=== PATIENT | female | born 1945 | race African-American/Black ===

== ENCOUNTER 2017-02-10 19:46 | Observation (INO) | payer OTHER ==
[~2017-02-10] VITALS: Ht 162.6 cm; Wt 60.0 kg
[~2017-02-10 19:46] MED LIST: APIX5TAB PO; FERR324T4 PO; FLON0.053; LISI10TA PO; LOVA40TA PO; OMEP20TA39 PO; ZOFR4TAB3 SL
[2017-02-10 19:49] VITALS: BP 197/91; PULSE 69; RESP 15; TEMP 98.6; O2SAT 99
[2017-02-10] MEDS ORDERED: SODIUM CHLORIDE 0.9% FLUSH 10 ML FLUSH IVF PRN (20:15)
[2017-02-10] MEDS ORDERED: OMEP40CA2 PO (20:18)
[2017-02-10] MEDS ORDERED: LOVA40TA PO (20:18)
[2017-02-10] MEDS ORDERED: FURO20TA PO (20:18)
[2017-02-10] MEDS ORDERED: HYDR-3580 PO (20:18)
[2017-02-10] MEDS ORDERED: LISI-519 PO (20:18)
[2017-02-10] MEDS ORDERED: APIX5TAB PO (20:18)
--- NOTE | 2017-02-10 20:23 | PD ---
HPI Chief Complaint: Chest Pain Time Seen by Provider: 20:18 Travel History International Travel<30 days: No Contact w/Intl Traveler<30days: No Traveled to known affect area: No History of Present Illness HPI 71-year-old female presents to the emergency department for evaluation of midsternal chest pain that radiates down to the abdomen for approximately 2 days. She reports nausea. No vomiting. 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 She states she was diagnosed with this 3 years ago and states it is not followed. She states she is not sure where this tumor is. Patient states she had a stress test approximately a year ago at [place] and states it was normal. 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 She has not followed with pageant director. Patient reports history of CVA and is on Eliquis. She states that she woke up this morning with some left arm numbness and left leg numbness. Patient states she did not have that yesterday. She states she had chills last night. She denies headache or fevers. She states she is mildly short of breath. Patient reports history of appendectomy, but denies any chronic abdominal problems. PFSH Past Medical History Hx Anticoagulant Therapy: Yes (ELIQUIS) Arthritis: No Asthma: No Autoimmune Disease: No Blood Disorders: No Anxiety: Yes Depression: Yes Heart Rhythm Problems: No Cancer: No Cardiovascular Problems: No High Cholesterol: Yes Chemotherapy: No Chest Pain: No Congestive Heart Failure: No COPD: No Cerebrovascular Accident: Yes (AFTER REHAB STILL TROUBLE WITH L EYE APPROX. 2011) Diabetes: No Diminished Hearing: No Endocrine: No Gastrointestinal Disorders: Yes GERD: Yes Glaucoma: No Genitourinary: No Headaches: Yes Hepatitis: No Hiatal Hernia: No Hypertension: No Immune Disorder: No Kidney Stones: No Musculoskeletal: Yes Neurologic: No Psychiatric: Yes Reproductive: No Respiratory: Yes Immunizations Current: Yes Migraines: No Myocardial Infarction: No Radiation Therapy: No Renal Failure: No Seizures: No Sickle Cell Disease: No Sleep Apnea: No Thyroid Disease: No Ulcer: No Menopausal: Yes Past Surgical History Abdominal Surgery: Yes (HYSTERECTOMY, ?APPENDECTOMY) AICD: No Appendectomy: Yes Arteriovenous Shunt: No Cardiac Surgery: No Cholecystectomy: No Ear Surgery: No Endocrine Surgery: No Eye Surgery: No Genitourinary Surgery: No Gynecologic Surgery: No Hysterectomy: Yes Insulin Pump: No Joint Replacement: No Oral Surgery: No Pacemaker: No Thoracic Surgery: No Other Surgery: Yes Social History Alcohol Use: Yes (RARELY) Tobacco Use: No (QUIT OVER 30 YEARS AGO) Substance Use: No Allergies-Medications (Allergen,Severity, Reaction): Coded Allergies: Codeine (Verified Allergy, Severe, 10/31/14) Sulfa (Verified Allergy, Severe, 10/31/14) STATES NOT ALLERGIC Reported Meds & Prescriptions Reported Meds & Active Scripts Active Reported Eliquis (Apixaban) 5 Mg Tab 5 Mg PO BID Lovastatin 40 Mg Tab 80 Mg PO HS Lisinopril 5 Mg Tab 5 Mg PO DAILY Furosemide 20 Mg Tab 20 Mg PO DAILY Hydrocodone-Acetaminophen 7.5-325 mg Tab 1 Tab PO Q8HR PRN Omeprazole 40 Mg Cap 40 Mg PO DAILY Review of Systems Except as stated in HPI: all other systems reviewed are Neg Physical Exam Narrative GENERAL: Well-nourished, well-developed elderly female patient, afebrile. SKIN: Focused skin assessment warm/dry. HEAD: Normocephalic. Atraumatic. EYES: No scleral icterus. No injection or drainage. NECK: Supple, trachea midline. No JVD or lymphadenopathy. CARDIOVASCULAR: Regular rate and rhythm without murmurs, gallops, or rubs. Bilateral radial and pedal pulses 2+ RESPIRATORY: Breath sounds equal bilaterally. No accessory muscle use. Lungs sounds are clear to auscultation GASTROINTESTINAL: Abdomen soft and nondistended. Patient's epigastric and left lower quadrant tenderness to palpation. MUSCULOSKELETAL: No cyanosis, or edema. BACK: Nontender without obvious deformity. No CVA tenderness. Bilateral upper and lower extremity strength 5/5. All extremities are neurovascularly intact. NEUROLOGICAL: Awake and alert. Cranial nerves II through XII intact. Motor and sensory grossly within normal limits. Five out of 5 muscle strength in all muscle groups. Normal speech. Data Data Last Documented VS Vital Signs Date Time Temp Pulse Resp B/P Pulse Ox O2 Delivery O2 Flow Rate FiO2 02/10/17 20:37 69 18 100 02/10/17 19:49 98.6 197/91 Room Air Orders Electrocardiogram (02/10/17 20:15) Ckmb (Isoenzyme) Profile (02/10/17 20:15) Complete Blood Count With Diff (02/10/17 20:15) Magnesium (Mg) (02/10/17 20:15) Prothrombin Time / Inr (Pt) (02/10/17 20:15) Act Partial Throm Time (Ptt) (02/10/17 20:15) Troponin I (02/10/17 20:15) Chest, Single Ap (02/10/17 20:15) Ecg Monitoring (02/10/17 20:15) Bilateral Bp Monitoring (02/10/17 20:15) Iv Access Insert/Monitor (02/10/17 20:15) Oximetry (02/10/17 20:15) Oxygen Administration (02/10/17 20:15) Sodium Chloride 0.9% Flush (Ns Flush) (02/10/17 20:15) Comprehensive Metabolic Panel (02/10/17 20:15) Lipase (02/10/17 20:15) Urinalysis - C+S If Indicated (02/10/17 20:15) Ct Abd/Pel W Iv Contrast(Rout) (02/10/17 ) Ct Brain W/O Iv Contrast(Rout) (02/10/17 ) CKMB (02/10/17 20:23) CKMB% (02/10/17 20:23) Ondansetron Inj (Zofran Inj) (02/10/17 21:45) Morphine Inj (Morphine Inj) (02/10/17 21:45) Morphine Inj (Morphine Inj) (02/10/17 22:00) Labs Laboratory Tests Test 02/10/17 20:23 White Blood Count 4.7 TH/MM3 Red Blood Count 3.81 MIL/MM3 Hemoglobin 11.8 GM/DL Hematocrit 35.2 % Mean Corpuscular Volume 92.3 FL Mean Corpuscular Hemoglobin 31.0 PG Mean Corpuscular Hemoglobin 33.6 % Concent Red Cell Distribution Width 14.4 % Platelet Count 394 TH/MM3 Mean Platelet Volume 6.8 FL Neutrophils (%) (Auto) 27.8 % Lymphocytes (%) (Auto) 56.8 % Monocytes (%) (Auto) 11.7 % Eosinophils (%) (Auto) 2.5 % Basophils (%) (Auto) 1.2 % Neutrophils # (Auto) 1.3 TH/MM3 Lymphocytes # (Auto) 2.7 TH/MM3 Monocytes # (Auto) 0.6 TH/MM3 Eosinophils # (Auto) 0.1 TH/MM3 Basophils # (Auto) 0.1 TH/MM3 CBC Comment DIFF FINAL Differential Comment Prothrombin Time 10.5 SEC Prothromb Time International 1.0 RATIO Ratio Activated Partial 25.9 SEC Thromboplast Time Urine Color YELLOW Urine Turbidity CLEAR Urine pH 5.5 Urine Specific [place] 1.012 Urine Protein NEG mg/dL Urine Glucose (UA) NEG mg/dL Urine Ketones NEG mg/dL Urine Occult Blood TRACE Urine Nitrite NEG Urine Bilirubin NEG Urine Urobilinogen LESS THAN 2.0 MG/DL Urine Leukocyte Esterase NEG Microscopic Urinalysis Comment CULT NOT INDICATED Sodium Level 138 MEQ/L Potassium Level 3.9 MEQ/L Chloride Level 103 MEQ/L Carbon Dioxide Level 29.1 MEQ/L Anion Gap 6 MEQ/L Blood Urea Nitrogen 16 MG/DL Creatinine 0.71 MG/DL Estimat Glomerular Filtration 98 ML/MIN Rate Random Glucose 80 MG/DL Calcium Level 9.5 MG/DL Magnesium Level 2.1 MG/DL Total Bilirubin 0.3 MG/DL Aspartate Amino Transf 32 U/L (AST/SGOT) Alanine Aminotransferase 35 U/L (ALT/SGPT) Alkaline Phosphatase 78 U/L Total Creatine Kinase 119 U/L Creatine Kinase MB 0.7 NG/ML Troponin I LESS THAN 0.02 NG/ML Total Protein 8.0 GM/DL Albumin 3.9 GM/DL Lipase 116 U/L [facility] Medical Decision Making Medical Screen Exam Complete: Yes Emergency Medical Condition: Yes Medical Record Reviewed: Yes Interpretation(s) chest x-ray -CONCLUSION: No evidence of acute cardiopulmonary disease. CT brain - CONCLUSION: No acute intracranial abnormality. Old right occipital lobe infarct. Differential Diagnosis ACS versus chest wall pain versus pancreatitis versus diverticulitis versus TIA versus CVA versus intracranial abnormality versus electrolyte abnormality Narrative Course 77-year-old female presents to the emergency department for evaluation and midsternal chest pain and rates the abdomen for 2 days as well as left arm and leg numbness that started this morning. EKG shows sinus rhythm, heart rate 83 patient's nonspecific T-wave changes in V2 and V3. These appear more pronounced than previous EKG on file. CBC, CMP, magnesium, CK, troponin, lipase , PTT, PTT/INR are ordered and pending. UA is ordered and pending. CT abdomen/ pelvis and CT of the brain are ordered and pending. CBC shows no acute abnormality. CMP shows no acute abnormality. Magnesium is 2.1. CK is 119. Troponin is less than 0.02. Lipase is 116. Coags are unremarkable. UA is negative for acute infection. CT of the brain shows no acute intracranial abnormality. CT of the abdomen/pelvis is pending. Chest x- ray shows no evidence of acute cardiopulmonary disease. My attending physician, Dr. Cassidy, will resume care and disposition of patient. Armida Ibrahim Feb 10, 2017 20:23
[2017-02-10 20:37] VITALS: PULSE 69; RESP 18; O2SAT 100
--- NOTE | 2017-02-10 20:49 | RADRPT ---
EXAM DATE/TIME: 02/10/2017 20:30 [facility] COMPARISON: No previous studies available for comparison. INDICATIONS : Chest pain starting today` MEDICAL HISTORY : None. SURGICAL HISTORY : None. ENCOUNTER: Initial ACUITY: 1 day PAIN SCORE: 8/10 LOCATION: Left chest FINDINGS: A single view of the chest demonstrates the lungs to be symmetrically aerated without evidence of mas s, infiltrate or effusion. The cardiomediastinal contours are unremarkable. Osseous structures are intact. CONCLUSION: No evidence of acute cardiopulmonary disease. Carlton Melendrez MD on February 10, 2017 at 20:47 Board Certified Radiologist. This report was verified electronically.
[2017-02-10 21:08] LABS: AUTOMATED NEUTROPHIL # 1.3 TH/MM3 (1.8-7.7); BASOPHIL # 0.1 TH/MM3 (0-0.2); BASOPHIL % 1.2 % (0.0-2.0); EOSINOPHIL # 0.1 TH/MM3 (0-0.4); EOSINOPHIL % 2.5 % (0.0-4.0); HEMATOCRIT 35.2 % (35.0-46.0); HEMO FLAGS DIFF FINAL; LYMPH % 56.8 % (9.0-44.0); LYMPHOCYTE # 2.7 TH/MM3 (1.0-4.8); MEAN CELL VOLUME 92.3 FL (80.0-100.0); MEAN CORPUSCULAR HGB CONC 33.6 % (32.0-36.0); MONO % 11.7 % (0.0-8.0); NEUT % 27.8 % (16.0-70.0); PLATELET COUNT 394 TH/MM3 (150-450); RED BLOOD COUNT 3.81 MIL/MM3 (4.00-5.30); RED CELL DISTRIBUTION WIDTH 14.4 % (11.6-17.2); WHITE BLOOD COUNT 4.7 TH/MM3 (4.0-11.0)
[2017-02-10 21:19] LABS: APTT (PATIENT) 25.9 SEC (24.3-30.1); PROTHROMBIN TIME - PATIENT 10.5 SEC (9.8-11.6)
[2017-02-10 21:24] LABS: ANION GAP 6 MEQ/L (5-15); AST (GOT) 32 U/L (15-37); BICARBONATE 29.1 MEQ/L (21.0-32.0); BLOOD UREA NITROGEN 16 MG/DL (7-18); CHLORIDE 103 MEQ/L (98-107); GLOMERULAR FILTRATION RATE 98 ML/MIN (>89); MAGNESIUM 2.1 MG/DL (1.5-2.5); POTASSIUM 3.9 MEQ/L (3.5-5.1); SODIUM (NA) 138 MEQ/L (136-145)
[2017-02-10 21:30] LABS: ALKALINE PHOSPHATASE 78 U/L (45-117); ALT (GPT) 35 U/L (10-53); CREATINE KINASE 119 U/L (26-192); TOTAL BILIRUBIN ADULT 0.3 MG/DL (0.2-1.0)
[2017-02-10 21:42] LABS: CKMB 0.7 NG/ML (0.5-3.6)
[2017-02-10] MEDS ORDERED: MORPHINE SULFATE 4 MG/ML INJ IV PUSH ONE (21:45)
[2017-02-10] MEDS ORDERED: ONDANSETRON HCL 4 MG/2 ML VIAL IV PUSH ONE (21:45)
[2017-02-10 21:54] LABS: BLOOD, URINE TRACE (NEG); COMMENT (UR) CULT NOT INDICATED; CULTURE IF INDICATED CULT NOT INDICATED; GLUCOSE,URINE NEG (NEG); KETONE, URINE NEG (NEG); NITRITE,URINE NEG (NEG); PH, URINE 5.5 (5.0-8.5); URINE COLOR YELLOW (YELLW/STRAW)
[2017-02-10] MEDS ORDERED: MORPHINE SULFATE 8 MG/ML INJ IV PUSH ONE (22:00)
--- NOTE | 2017-02-10 22:39 | RADRPT ---
EXAM DATE/TIME: 02/10/2017 22:06 [facility] COMPARISON: Report only CT BRAIN W/O CONTRAST, January 06, 2012, 13:18. INDICATIONS : Altered mental status. RADIATION DOSE: 56.35 CTDIvol (mGy) MEDICAL HISTORY : Cerebrovascular disease. SURGICAL HISTORY : Hysterectomy. Appendectomy. ENCOUNTER: Initial ACUITY: 1 day PAIN SCALE: Non-responsive LOCATION: cranial TECHNIQUE: Multiple contiguous axial images were obtained of the head. Using automated exposure control and adj ustment of the mA and/or kV according to patient size, radiation dose was kept as low as reasonably a chievable to obtain optimal diagnostic quality images. DICOM format image data is available electro nically for review and comparison. FINDINGS: CEREBRUM: The ventricles are normal for age. No evidence of midline shift, mass lesion, hemorrhage or acute in farction. No extra-axial fluid collections are seen. Encephalomalacia medially of the right occipita l lobe again noted. POSTERIOR FOSSA: The cerebellum and brainstem are intact. The 4th ventricle is midline. The cerebellopontine angle i s unremarkable. EXTRACRANIAL: The visualized portion of the orbits is intact. SKULL: The calvaria is intact. No evidence of skull fracture. CONCLUSION: No acute intracranial abnormality. Old right occipital lobe infarct. Carlton Melendrez MD on February 10, 2017 at 22:37 Board Certified Radiologist. This report was verified electronically.
[2017-02-10] MEDS ORDERED: IOHEXOL 350 MG/ML 10 ML VIAL (for RAD DIAG) IV ONE (23:00)
--- NOTE | 2017-02-10 23:09 | RADRPT ---
EXAM DATE/TIME: 02/10/2017 22:10 [facility] COMPARISON: CT ABDOMEN & PELVIS W CONTRAST, October 31, 2014, 9:55. INDICATIONS : Diffuse abdominal pain. IV CONTRAST: 100 cc Omnipaque 350 (iohexol) IV ORAL CONTRAST: No oral contrast ingested. RADIATION DOSE: 6.71 CTDIvol (mGy) MEDICAL HISTORY : None SURGICAL HISTORY : Appendectomy. Hysterectomy. ENCOUNTER: Initial ACUITY: 3 days PAIN SCALE: 5/10 LOCATION: abdomen TECHNIQUE: Volumetric scanning of the abdomen and pelvis was performed. Using automated exposure control and ad justment of the mA and/or kV according to patient size, radiation dose was kept as low as reasonably achievable to obtain optimal diagnostic quality images. DICOM format image data is available electro nically for review and comparison. FINDINGS: Stable subcentimeter low density liver lesion left lobe on image 9. Patient is status post cholecyste ctomy and there is dilatation the common bile duct again seen up to 15 mm likely related to a reservo ir effect. There is atherosclerotic calcification of the aorta and iliac vessels. Urinary bladder, ki dneys, spleen, pancreas, adrenal glands and stomach are unremarkable. No evidence of bowel obstructio n. No pathologically enlarged lymph nodes are present. Lung bases are clear. Osseous structures are i ntact. There are degenerative changes of the lower lumbar spine with L5 spondylolysis and grade 1 ant erolisthesis of L5 on S1 noted. At the level of the distal common bile duct there is a stable linear area of high attenuation measuring 9.9 mm in length on coronal image 46, unchanged possibly partial v olume averaging with duodenum, choledocholith felt less likely though not entirely excluded, stable f inding from 2014. CONCLUSION: 1. No acute findings to explain the patient's diffuse abdominal pain. Brandon Senior MD on February 10, 2017 at 23:04 Board Certified Radiologist. This report was verified electronically.
[2017-02-10 23:34] VITALS: BP 210/98; PULSE 66; RESP 18; O2SAT 100
--- NOTE | 2017-02-10 23:34 | PD ---
Data Data Last Documented VS Vital Signs Date Time Temp Pulse Resp B/P Pulse Ox O2 Delivery O2 Flow Rate FiO2 02/10/17 23:34 66 18 210/98 100 02/10/17 19:49 98.6 Room Air Orders Electrocardiogram (02/10/17 20:15) Ckmb (Isoenzyme) Profile (02/10/17 20:15) Complete Blood Count With Diff (02/10/17 20:15) Magnesium (Mg) (02/10/17 20:15) Prothrombin Time / Inr (Pt) (02/10/17 20:15) Act Partial Throm Time (Ptt) (02/10/17 20:15) Troponin I (02/10/17 20:15) Chest, Single Ap (02/10/17 20:15) Ecg Monitoring (02/10/17 20:15) Bilateral Bp Monitoring (02/10/17 20:15) Iv Access Insert/Monitor (02/10/17 20:15) Oximetry (02/10/17 20:15) Oxygen Administration (02/10/17 20:15) Sodium Chloride 0.9% Flush (Ns Flush) (02/10/17 20:15) Comprehensive Metabolic Panel (02/10/17 20:15) Lipase (02/10/17 20:15) Urinalysis - C+S If Indicated (02/10/17 20:15) Ct Abd/Pel W Iv Contrast(Rout) (02/10/17 ) Ct Brain W/O Iv Contrast(Rout) (02/10/17 ) CKMB (02/10/17 20:23) CKMB% (02/10/17 20:23) Ondansetron Inj (Zofran Inj) (02/10/17 21:45) Morphine Inj (Morphine Inj) (02/10/17 21:45) Morphine Inj (Morphine Inj) (02/10/17 22:00) Iohexol 350 Inj (Omnipaque 350 Inj) (02/10/17 23:00) Labs Laboratory Tests Test 02/10/17 20:23 White Blood Count 4.7 TH/MM3 Red Blood Count 3.81 MIL/MM3 Hemoglobin 11.8 GM/DL Hematocrit 35.2 % Mean Corpuscular Volume 92.3 FL Mean Corpuscular Hemoglobin 31.0 PG Mean Corpuscular Hemoglobin 33.6 % Concent Red Cell Distribution Width 14.4 % Platelet Count 394 TH/MM3 Mean Platelet Volume 6.8 FL Neutrophils (%) (Auto) 27.8 % Lymphocytes (%) (Auto) 56.8 % Monocytes (%) (Auto) 11.7 % Eosinophils (%) (Auto) 2.5 % Basophils (%) (Auto) 1.2 % Neutrophils # (Auto) 1.3 TH/MM3 Lymphocytes # (Auto) 2.7 TH/MM3 Monocytes # (Auto) 0.6 TH/MM3 Eosinophils # (Auto) 0.1 TH/MM3 Basophils # (Auto) 0.1 TH/MM3 CBC Comment DIFF FINAL Differential Comment Prothrombin Time 10.5 SEC Prothromb Time International 1.0 RATIO Ratio Activated Partial 25.9 SEC Thromboplast Time Urine Color YELLOW Urine Turbidity CLEAR Urine pH 5.5 Urine Specific [place] 1.012 Urine Protein NEG mg/dL Urine Glucose (UA) NEG mg/dL Urine Ketones NEG mg/dL Urine Occult Blood TRACE Urine Nitrite NEG Urine Bilirubin NEG Urine Urobilinogen LESS THAN 2.0 MG/DL Urine Leukocyte Esterase NEG Microscopic Urinalysis Comment CULT NOT INDICATED Sodium Level 138 MEQ/L Potassium Level 3.9 MEQ/L Chloride Level 103 MEQ/L Carbon Dioxide Level 29.1 MEQ/L Anion Gap 6 MEQ/L Blood Urea Nitrogen 16 MG/DL Creatinine 0.71 MG/DL Estimat Glomerular Filtration 98 ML/MIN Rate Random Glucose 80 MG/DL Calcium Level 9.5 MG/DL Magnesium Level 2.1 MG/DL Total Bilirubin 0.3 MG/DL Aspartate Amino Transf 32 U/L (AST/SGOT) Alanine Aminotransferase 35 U/L (ALT/SGPT) Alkaline Phosphatase 78 U/L Total Creatine Kinase 119 U/L Creatine Kinase MB 0.7 NG/ML Troponin I LESS THAN 0.02 NG/ML Total Protein 8.0 GM/DL Albumin 3.9 GM/DL Lipase 116 U/L MDM Supervised Visit with SAMANTHA: Yes Narrative Course I, Dr. Cassidy, have reviewed the advance practice practioner's documentation and am in agreement, met with the patient face to face, made the diagnosis, and the medical decision making was done by me. *My assessment and Findings: 71-year-old female with history of CVA, HTN, HLD here with complaint of 2 days of epigastric and left-sided chest pain. She denies any history of cardiac disease, reportedly had a stress test one year ago but does not know who this was with. She does not follow with a special order jeweler regularly. She has a history of CVA for which she is on Eliquis, notes that today she has had some increased numbness and tingling in her left leg but no weakness. She has not noticed anything that seems to make the chest pain better or worse. No reproducible chest pain on exam but she does have some abdominal tenderness in epigastric and left lower quadrant. Differential includes ACS, atypical chest pain, GERD, gastritis, pancreatitis, hepatobiliary pathology, and less likely PE or dissection. With her numbness and tingling on the left arm and leg concern for TIA/CVA. Twelve-lead EKG shows sinus rhythm. Patient has biphasic T waves in V2 and V3 these are more notable than she has had previously. Chest x-ray, CT head and abdomen and pelvis were unremarkable. CBC , CMP, lipase, magnesium, CK-MB, troponin, coags, urinalysis obtained and unremarkable. Given her increased EKG T-wave changes and numbness and tingling in the left arm and leg, patient will be admitted for further cardiac enzymes and rule out CVA. Diagnosis Primary Impression: Chest pain Qualified Code: R07.2 - Precordial pain Additional Impressions: Left arm numbness Left leg numbness Admitting Information Admitting Physician Requests: Kendy Parsons MD Feb 10, 2017 23:34
[2017-02-11] VITALS (9 sets, daily range): BP systolic 130–195; BP diastolic 60–91; PULSE 58–80; RESP 16–18; TEMP 98–98.6; O2SAT 97–100
[2017-02-11] MEDS ORDERED: ENALAPRILAT 2.5 MG/2 ML VIAL IV PUSH ONE
[2017-02-11] MEDS ORDERED: SENNOSIDES 8.6 MG TAB PO PRN (00:15)
[2017-02-11] MEDS ORDERED: LACTULOSE SYRUP 20 GM/30 ML CUP PO PRN (00:15)
[2017-02-11] MEDS ORDERED: MORPHINE SULFATE 4 MG/ML INJ IV PRN (00:15)
[2017-02-11] MEDS ORDERED: BISACODYL 10 MG SUPP RECTAL PRN (00:15)
[2017-02-11] MEDS ORDERED: MAGNESIUM HYDROXIDE SUSP 30 ML CUP PO PRN (00:15)
[2017-02-11] MEDS ORDERED: ACETAMINOPHEN 325 MG TAB PO PRN (00:15)
[2017-02-11] MEDS ORDERED: SODIUM CHLORIDE 0.9% FLUSH 10 ML FLUSH IV FLUSH PRN (00:15)
[2017-02-11] MEDS: SODIUM CHLOR 0.9% 1000 ML INJ 1,000 ML IV SCH ×3 (01:20→22:40)
--- NOTE | 2017-02-11 02:41 | HHI.HP ---
[facility] Service [facility] Primary Care Physician Non-Staff Admission Diagnosis chest pain, left arm/leg numbness Diagnoses: (1) Chest pain Diagnosis: Principal (2) TIA (transient ischemic attack) Diagnosis: Principal (3) HTN (hypertension) Diagnosis: Principal (4) Chronic anticoagulation Diagnosis: Principal Travel History International Travel<30 Days: No Contact w/Intl Traveler <30 Da: No Traveled to Known Affected Are: No History of Present Illness This is a 71-year-old female with a PMH of Anxiety, Depression, HTN, Hyperlipidemia and h/o CVA on Eliquis who presented to the ER w/ complaints of chest pain in addition to left arm and left leg numbness/tingling starting earlier today. Denies fever, chills, cough or sick contacts. No motor weakness reported. States previous Stress Test approx 1yr ago normal, results not available. On arrival, BP 197/91, HR 69, O2 sat 99% on RA, Afebrile. CBC essentially unremarkable. Chemistry unremarkable. Troponin negative. INR 1.0. UA negative. CXR with no acute findings. CT Abd/Pelvis negative. CT Head with no acute findings, old right occipital lobe infarct. Review of Systems Except as stated in HPI: all other systems reviewed are Neg ROS: 14 point review of systems otherwise negative. Past Family Social History Past Medical History PMH: Anxiety, Depression, HTN, Hyperlipidemia and h/o CVA on Eliquis Past Surgical History PAST SURGICAL HISTORY: Hysterectomy, Appendectomy Allergies: Coded Allergies: Codeine (Verified Allergy, Severe, 10/31/14) Sulfa (Verified Allergy, Severe, 10/31/14) STATES NOT ALLERGIC Family History PAST FAMILY HISTORY: Reviewed. No h/o DM or CAD Social History PAST SOCIAL HISTORY: Occasional alcohol. Negative for tobacco or drugs. Physical Exam Vital Signs Vital Signs Date Time Temp Pulse Resp B/P Pulse Ox O2 Delivery O2 Flow Rate FiO2 02/11/17 01:57 98.6 66 18 176/86 97 02/11/17 01:10 60 18 156/74 100 02/10/17 23:34 66 18 210/98 100 02/10/17 20:37 69 18 100 02/10/17 19:49 98.6 69 15 197/91 99 Room Air Physical Exam PE: GENERAL: Elderly black female in no acute distress. Seen ambulating without difficulty. HEENT: PERRLA, EOMI. No scleral icterus or conjunctival pallor. No lid lag or facial droop. CARDIOVASCULAR: Regular rate and rhythm. No obvious murmurs to auscultation. No chest tenderness to palpation. RESPIRATORY: No obvious rhonchi or wheezing. Clear to auscultation. Breath sounds equal bilaterally. GASTROINTESTINAL: Abdomen soft, non-tender, nondistended. BS normal. MUSCULOSKELETAL: Extremities without clubbing, cyanosis, or edema. No obvious deformities. NEUROLOGICAL: Awake, alert and oriented x4. No focal neurologic deficits. Moving both upper and lower extremities spontaneously. Laboratory Laboratory Tests Test 02/10/17 20:23 White Blood Count 4.7 Red Blood Count 3.81 Hemoglobin 11.8 Hematocrit 35.2 Mean Corpuscular Volume 92.3 Mean Corpuscular Hemoglobin 31.0 Mean Corpuscular Hemoglobin 33.6 Concent Red Cell Distribution Width 14.4 Platelet Count 394 Mean Platelet Volume 6.8 Neutrophils (%) (Auto) 27.8 Lymphocytes (%) (Auto) 56.8 Monocytes (%) (Auto) 11.7 Eosinophils (%) (Auto) 2.5 Basophils (%) (Auto) 1.2 Neutrophils # (Auto) 1.3 Lymphocytes # (Auto) 2.7 Monocytes # (Auto) 0.6 Eosinophils # (Auto) 0.1 Basophils # (Auto) 0.1 CBC Comment DIFF FINAL Differential Comment Prothrombin Time 10.5 Prothromb Time International 1.0 Ratio Activated Partial 25.9 Thromboplast Time Urine Color YELLOW Urine Turbidity CLEAR Urine pH 5.5 Urine Specific [place] 1.012 Urine Protein NEG Urine Glucose (UA) NEG Urine Ketones NEG Urine Occult Blood TRACE Urine Nitrite NEG Urine Bilirubin NEG Urine Urobilinogen LESS THAN 2.0 Urine Leukocyte Esterase NEG Microscopic Urinalysis Comment CULT NOT INDICATED Sodium Level 138 Potassium Level 3.9 Chloride Level 103 Carbon Dioxide Level 29.1 Anion Gap 6 Blood Urea Nitrogen 16 Creatinine 0.71 Estimat Glomerular Filtration 98 Rate Random Glucose 80 Calcium Level 9.5 Magnesium Level 2.1 Total Bilirubin 0.3 Aspartate Amino Transf 32 (AST/SGOT) Alanine Aminotransferase 35 (ALT/SGPT) Alkaline Phosphatase 78 Total Creatine Kinase 119 Creatine Kinase MB 0.7 Troponin I LESS THAN 0.02 Total Protein 8.0 Albumin 3.9 Lipase 116 Result Diagram: 02/10/17202202/10/172022 Assessment and Plan Problem List: (1) Chest pain ICD Code: R07.9 Status: Acute (2) TIA (transient ischemic attack) ICD Code: G45.9 Status: Acute (3) HTN (hypertension) ICD Code: I10 Status: Acute (4) Chronic anticoagulation ICD Code: Z79.01 Status: Acute Assessment and Plan A/P: 1. Chest Pain: acute onset of chest pain, initial trop negative, EKG w/ no acute ischemia. Admit for Observation, check serial enzymes, ASA, Statin. CXR w/ no acute findings, images reviewed by me. 2. TIA: c/o LUE/LLE numbness/tingling, no motor weakness, CT Head w/ no acute findings, images reviewed by me. Check MRI Brain, lipid profile, Hgb A1c. ASA , Statin as above. 3. HTN: Uncontrolled. BP 190's on arrival, s/p Vasotec 2.5mg IV x1 in ER, BP currently 150's systolic, will monitor. Antihypertensives as needed. 4. Chronic Anticoagulation: H/o CVA on Eliquis, will resume. 5. DVT Prophylaxis: Continue with home Eliquis as above. 6. Social work for DC planning as needed. 7. Case discussed at length with ER physician. Problem Qualifiers (1) Chest pain: Qualified Code: R07.2 - Precordial pain Peggy Guillory MD Feb 11, 2017 02:41
[2017-02-11] MEDS ORDERED: PANTOPRAZOLE SODIUM 40 MG VIAL IV PUSH ONE (02:45)
[2017-02-11] MEDS: MORPHINE SULFATE 8 MG/ML INJ IV PUSH PRN ×2 (03:20→12:44)
[2017-02-11] MEDS: APIXABAN 5 MG TABLET PO SCH ×2 (08:55→22:39)
[2017-02-11] MEDS: ACETAMINOPHEN/HYDROcodone 325 MG/7.5 MG TAB PO PRN ×2 (08:56→22:39)
[2017-02-11] MEDS: PANTOPRAZOLE SOD 40 MG DELAYED RELEASE TAB PO SCH (08:56)
[2017-02-11] MEDS: DOCUSATE SODIUM 50 MG/SENNA 8.6 MG TAB PO SCH ×2 (08:56→22:39)
[2017-02-11] MEDS: ASPIRIN EC 81 MG TABEC PO SCH (08:56)
[2017-02-11] MEDS: SODIUM CHLORIDE 0.9% FLUSH 10 ML FLUSH IV FLUSH SCH ×2 (08:57→22:40)
[2017-02-11] MEDS ORDERED: PRAVASTATIN SOD 40 MG TAB PO SCH (09:00)
[2017-02-11 09:55] LABS: AUTOMATED NEUTROPHIL # 1.7 TH/MM3 (1.8-7.7); BASOPHIL % 0.7 % (0.0-2.0); EOSINOPHIL # 0.1 TH/MM3 (0-0.4); EOSINOPHIL % 1.8 % (0.0-4.0); HEMATOCRIT 35.5 % (35.0-46.0); HEMO FLAGS DIFF FINAL; LYMPH % 51.9 % (9.0-44.0); LYMPHOCYTE # 2.4 TH/MM3 (1.0-4.8); MEAN CELL VOLUME 92.2 FL (80.0-100.0); MEAN CORPUSCULAR HEMOGLOBIN 31.1 PG (27.0-34.0); MEAN CORPUSCULAR HGB CONC 33.8 % (32.0-36.0); MONO % 9.7 % (0.0-8.0); NEUT % 35.9 % (16.0-70.0); PLATELET COUNT 391 TH/MM3 (150-450); RED BLOOD COUNT 3.86 MIL/MM3 (4.00-5.30); RED CELL DISTRIBUTION WIDTH 14.2 % (11.6-17.2); WHITE BLOOD COUNT 4.6 TH/MM3 (4.0-11.0)
[2017-02-11 10:32] LABS: ANION GAP 6 MEQ/L (5-15); AST (GOT) 32 U/L (15-37); BICARBONATE 28.2 MEQ/L (21.0-32.0); BLOOD UREA NITROGEN 11 MG/DL (7-18); CHLORIDE 104 MEQ/L (98-107); GLOMERULAR FILTRATION RATE 105 ML/MIN (>89); SODIUM (NA) 138 MEQ/L (136-145)
[2017-02-11 10:33] LABS: ALT (GPT) 34 U/L (10-53)
[2017-02-11 10:36] LABS: ALKALINE PHOSPHATASE 69 U/L (45-117); LDL CHOLESTEROL 134 MG/DL (0-99); TOTAL BILIRUBIN ADULT 0.5 MG/DL (0.2-1.0)
[2017-02-11] MEDS: ONDANSETRON HCL 4 MG/2 ML VIAL IVP PRN (11:26)
--- NOTE | 2017-02-11 12:05 | RADRPT ---
EXAM DATE/TIME: 02/11/2017 10:52 [facility] COMPARISON: CT BRAIN W/O CONTRAST, February 10, 2017, 22:06. INDICATIONS : Left sided weakness. MEDICAL HISTORY : Hypertension. CVA. SURGICAL HISTORY : Hysterectomy. Appendectomy. ENCOUNTER: Initial ACUITY: 1 day PAIN SCORE: 0/10 LOCATION: cranial TECHNIQUE: Multiplanar, multisequence MRI of the brain was performed without contrast. FINDINGS: Encephalomalacia with surrounding gliosis is identified in the right occipital lobe. Hemosiderin stai karen is also present along the periphery of the encephalomalacia. There is no evidence of restricted diffusion to suggest an acute infarct. There is noted some mass effect, edema or shift of midline structures. CSF spaces are unremarkable. CONCLUSION: 1. No evidence of acute infarct or hemorrhage. 2. Right occipital encephalomalacia consistent with old infarct. 3. No evidence of focal mass or edema. Francisco Ackerman MD on February 11, 2017 at 12:00 Board Certified Radiologist. This report was verified electronically.
[2017-02-11] MEDS: LISINOPRIL 10 MG TAB PO SCH (12:45)
--- NOTE | 2017-02-11 14:01 | EKG ---
Date Performed: 02/10/2017 Time Performed: 20:09:02 PTAGE: 71 years EKG: Sinus rhythm MODERATE T-WAVE ABNORMALITY, CONSIDER ANTERIOR ISCHEMIA ABNORMAL ECG PREVIOUS TRACING : 10/31/[address] elevation previously seen but slightly more pro minent with T-wave inversions, consider ischemia or even acute injury in the appropriate clinical set ting. Clinical correlation is recommended . DOCTOR: Anthony Sorenson Interpretating Date/Time 02/11/2017 14:00:21
[2017-02-11] MEDS ORDERED: POLYETHYLENE GLYCOL 17 GM PKG PO ONE (15:30)
[2017-02-11] MEDS ORDERED: ALUMINUM/MAGNESIUM/SIMETH 30 ML CUP PO ONE (15:30)
--- NOTE | 2017-02-11 15:35 | HHI.PR ---
Subjective Remarks Follow-up for abdominal cramping. The patient states her primary reason for coming to the hospital was generalized abdominal cramping and acid reflux. The patient states that she's been having generalized abdominal cramping for the past 2 weeks since she ate some bad chicken. She complains of intermittent nausea, but states Zofran has helped and she has been tolerating oral intake. She denies any vomiting. She denies any recent hematemesis. She states that she has been having episodes of constipation as well, last bowel movement was 3 days ago. She does report that she had an EGD and colonoscopy done about 3 years ago. She is concerned because in the past she had a tumor removed from her abdomen him on that she cannot recall where it was removed from. She also states that for the past few weeks she has been having acid reflux with burning sensation radiating from her stomach up into her chest. She states her PCP told her that if it persists that she should come to the hospital for evaluation. She denies any history of heart disease and has been on Eliquis for history of stroke. She did have some chest discomfort on admission that she describes as her previous acid reflux chest burning, no further chest pain overnight. She denies any dark or bloody stools. She has had multiple strokes in the past, and has residual left facial droop, otherwise no weakness. She denies any acute neurological complaints. Patient would like proceed with stress testing to rule out cardiac cause prior to GI follow-up. Objective Vitals Vital Signs Date Time Temp Pulse Resp B/P Pulse Ox O2 Delivery O2 Flow Rate FiO2 02/11/17 14:30 98.0 66 18 160/69 98 02/11/17 12:55 18 02/11/17 11:25 98.2 75 195/91 02/11/17 07:43 98.3 80 18 180/79 100 02/11/17 04:54 58 02/11/17 03:52 98.5 58 16 143/69 99 02/11/17 01:57 98.6 66 18 176/86 97 02/11/17 01:10 60 18 156/74 100 02/10/17 23:34 66 18 210/98 100 02/10/17 20:37 69 18 100 02/10/17 19:49 98.6 69 15 197/91 99 Room Air Result Diagram: 02/11/17 0930 02/11/17 0930 Imaging Last Impressions Brain MRI 02/11/17 0000 Signed Impressions: Service Date/Time: Saturday, February 11, 2017 10:52 - CONCLUSION: 1. No evidence of acute infarct or hemorrhage. 2. Right occipital encephalomalacia consistent with old infarct. 3. No evidence of focal mass or edema. Francisco Ackerman MD Chest X-Ray 02/10/172014 Signed Impressions: Service Date/Time: Friday, February 10, 2017 20:30 - CONCLUSION: No evidence of acute cardiopulmonary disease. Carlton Melendrez MD Head CT 02/10/17 0000 Signed Impressions: Service Date/Time: Friday, February 10, 2017 22:06 - CONCLUSION: No acute intracranial abnormality. Old right occipital lobe infarct. Carlton Melendrez MD Abdomen/Pelvis CT 02/10/17 0000 Signed Impressions: Service Date/Time: Friday, February 10, 2017 22:10 - CONCLUSION: 1. No acute findings to explain the patient's diffuse abdominal pain. Brandon Senior MD Objective Remarks GENERAL: Well-developed well-nourished. In no acute distress. SKIN: Warm and dry. No lesions noted. HEENT: Normocephalic. Pupils equal and round. Mucous membranes pink and moist. CARDIOVASCULAR: Regular rate and rhythm. No murmur appreciated. RESPIRATORY: No accessory muscle use. Clear to auscultation. Breath sounds equal bilaterally. GASTROINTESTINAL: Abdomen soft, non-tender, nondistended. Bowel sounds x4. MUSCULOSKELETAL: No obvious deformities. No clubbing or cyanosis. No edema. NEUROLOGICAL: Awake and alert. Moves upper and lower extremities spontaneously. Normal speech. Strength 5/5. PSYCHIATRIC: Appropriate mood and affect; insight and judgment normal. A/P Problem List: (1) Chest pain ICD Code: R07.9 Status: Acute (2) TIA (transient ischemic attack) ICD Code: G45.9 Status: Acute (3) HTN (hypertension) ICD Code: I10 Status: Acute (4) Chronic anticoagulation ICD Code: Z79.01 Status: Acute Assessment and Plan 71-year-old female with past medical history of HTN, CVA, HLD, GERD who presented for abdominal cramping and chest pain Abdominal pain: Nonspecific, possibly secondary to chronic gastritis or constipation. Abdominal exam is benign. Abdominal CT showed no acute process. Hemoglobin is stable. LFTs within normal limits. Continue Protonix. Maalox/ simethicone 1. Start Carafate. MiraLAX 1. Continue Colace. Recommended outpatient GI follow-up. Atypical chest pain: Symptoms sound related to GI and patient denies cardiac history. Doubt ACS as patient is on chronic anticoagulation with Eliquis, however EKG showed nonspecific T-wave changes and ischemia cannot be excluded. Troponin negative 2, third set pending. Aspirin added. Continue statin. Plan for stress testing in the a.m. Transient left-sided neuro symptoms: Symptoms are vague. Appears neurologically intact on exam. Checked brain MRI which showed old infarcts with no acute infarct or hemorrhage. Aspirin added. Continue Eliquis and statin. Hyperlipidemia: Lipid panel shows elevated LDL at 134. Change lovastatin to atorvastatin. Hypertension: Chronic. Not well controlled. Increase home lisinopril. Clonidine as needed. Discharge Planning Plan for stress testing in the a.m. If the stress testing is unremarkable, plan for outpatient GI follow-up. Problem Qualifiers (1) Chest pain: Qualified Code: R07.2 - Precordial pain Reuben Walls Feb 11, 2017 15:35
[2017-02-11] MEDS: SUCRALFATE 1 GM TAB PO SCH (16:00)
[2017-02-11] MEDS ORDERED: cloNIDine HCL 0.1 MG TAB PO PRN (16:00)
[2017-02-11] MEDS: ATORVASTATIN 40 MG TAB PO SCH (22:39)
[2017-02-12] VITALS (8 sets, daily range): BP systolic 117–197; BP diastolic 58–88; PULSE 55–78; RESP 16–20; TEMP 97.5–98.2; O2SAT 95–100
[2017-02-12] MEDS: PANTOPRAZOLE SOD 40 MG DELAYED RELEASE TAB PO SCH (08:54)
[2017-02-12] MEDS: ACETAMINOPHEN/HYDROcodone 325 MG/7.5 MG TAB PO PRN ×3 (08:54→20:57)
[2017-02-12] MEDS: DOCUSATE SODIUM 50 MG/SENNA 8.6 MG TAB PO SCH ×2 (08:55→20:56)
[2017-02-12] MEDS: ASPIRIN EC 81 MG TABEC PO SCH (08:55)
[2017-02-12] MEDS: LISINOPRIL 10 MG TAB PO SCH (08:55)
[2017-02-12] MEDS: SODIUM CHLORIDE 0.9% FLUSH 10 ML FLUSH IV FLUSH SCH ×2 (08:55→21:00)
[2017-02-12] MEDS: SUCRALFATE 1 GM TAB PO SCH ×3 (08:55→18:09)
[2017-02-12] MEDS: APIXABAN 5 MG TABLET PO SCH ×2 (08:55→20:56)
--- NOTE | 2017-02-12 11:24 | HHI.PR ---
Subjective Remarks Follow up for abdominal cramping, constipation, atypical chest pains. The patient reports continued diffuse abdominal cramping that starts in the epigastric area with radiation up into the substernal area and down into the umbilical area. No nausea/vomiting. She still has not had a BM since . She states she battles constipation at home, usually relieved by MOM. She is going for nuclear stress test today. Objective Vitals Vital Signs Date Time Temp Pulse Resp B/P Pulse Ox O2 Delivery O2 Flow Rate FiO2 02/12/17 10:24 175/76 02/12/17 08:49 98.2 70 20 197/88 99 02/12/17 07:30 55 02/12/17 03:36 97.5 68 16 184/75 99 02/11/17 23:45 16 02/11/17 23:37 98.0 67 17 141/82 98 02/11/17 19:57 98.1 72 17 130/60 100 02/11/17 14:30 98.0 66 18 160/69 98 02/11/17 12:55 18 02/11/17 11:25 98.2 75 195/91 I/O 02/11/17 02/11/17 02/11/17 02/12/17 02/12/17 02/12/17 07:00 15:00 23:00 07:00 15:00 23:00 Intake Total 200 ml 20 ml Balance 200 ml 20 ml Intake Oral 200 ml 20 ml # Voids 1 Result Diagram: 02/11/17 0930 02/11/17 0930 Imaging Last Impressions Brain MRI 02/11/17 0000 Signed Impressions: Service Date/Time: Saturday, February 11, 2017 10:52 - CONCLUSION: 1. No evidence of acute infarct or hemorrhage. 2. Right occipital encephalomalacia consistent with old infarct. 3. No evidence of focal mass or edema. Francisco Ackerman MD Chest X-Ray 02/10/172014 Signed Impressions: Service Date/Time: Friday, February 10, 2017 20:30 - CONCLUSION: No evidence of acute cardiopulmonary disease. Carlton Melendrez MD Head CT 02/10/17 0000 Signed Impressions: Service Date/Time: Friday, February 10, 2017 22:06 - CONCLUSION: No acute intracranial abnormality. Old right occipital lobe infarct. Carlton Melendrez MD Abdomen/Pelvis CT 02/10/17 0000 Signed Impressions: Service Date/Time: Friday, February 10, 2017 22:10 - CONCLUSION: 1. No acute findings to explain the patient's diffuse abdominal pain. Brandon Senior MD Objective Remarks GENERAL: Well-nourished, well-developed elderly female patient in NAD. SKIN: Warm and dry. No rash. HEENT: Normocephalic. Atraumatic.Pupils equal and round. Mucous membranes pink and moist. NECK: Supple. Trachea midline. CARDIOVASCULAR: Regular rate and rhythm. S1, S2 noted. No murmur appreciated. RESPIRATORY: No accessory muscle use. Clear to auscultation. Breath sounds equal bilaterally. GASTROINTESTINAL: Abdomen soft, nondistended, mild epigastric TTP. Normoactive bowel sounds x4. MUSCULOSKELETAL: No obvious deformities. Extremities without clubbing, cyanosis , or edema. NEUROLOGICAL: Awake and alert. No obvious cranial nerve deficits. Motor grossly within normal limits. Normal speech. PSYCHIATRIC: Appropriate mood and affect; insight and judgment normal. Medications and IVs Current Medications Medications (Trade) Dose Ordered Sig/Kristopher Route Start Time Stop Time Status Last Admin (NS 1000 ml Inj) 1,000 ml @ 100 mls/hr Q10H IV 02/11/17 00:15 02/11/17 22:40 (NS Flush) 2 ml UNSCH PRN IV FLUSH 02/11/17 00:15 (NS Flush) 2 ml BID IV FLUSH 02/11/17 09:00 02/12/17 08:55 (Zofran Inj) 4 mg Q6H PRN IVP 02/11/17 00:15 02/11/17 11:26 (Tylenol) 650 mg Q6H PRN PO 02/11/17 00:15 (Trixie-Colace) 1 tab BID PO 02/11/17 09:00 02/12/17 08:55 (Milk Of Magnesia Liq) 30 ml Q12H PRN PO 02/11/17 00:15 (Senokot) 17.2 mg Q12H PRN PO 02/11/17 00:15 (Dulcolax Supp) 10 mg DAILY PRN RECTAL 02/11/17 00:15 (Lactulose Liq) 30 ml DAILY PRN PO 02/11/17 00:15 (Ecotrin Ec) 81 mg DAILY PO 02/11/17 09:00 02/12/17 08:55 (Eliquis) 5 mg BID PO 02/11/17 09:00 02/12/17 08:55 ([place] 7.5-325 Mg) 1 tab Q4H PRN PO 02/11/17 02:45 02/12/17 08:54 (Protonix) 40 mg DAILY PO 02/11/17 09:00 02/12/17 08:54 (Lipitor) 40 mg HS PO 02/11/17 21:00 02/11/17 22:39 (Prinivil) 10 mg DAILY PO 02/11/17 12:15 02/12/17 08:55 (Carafate) 1 gm TIDAC PO 02/11/17 17:00 02/12/17 08:55 (Catapres) 0.1 mg Q6H PRN PO 02/11/17 16:00 A/P Problem List: (1) Chest pain ICD Code: R07.9 Status: Acute (2) TIA (transient ischemic attack) ICD Code: G45.9 Status: Acute (3) HTN (hypertension) ICD Code: I10 Status: Acute (4) Chronic anticoagulation ICD Code: Z79.01 Status: Acute Assessment and Plan 71-year-old female with past medical history of HTN, CVA, HLD, GERD who presented for abdominal cramping and chest pain Abdominal pain: Nonspecific, possibly secondary to chronic gastritis or constipation. Abdominal exam is benign. Abdominal CT showed no acute process. Hemoglobin is stable. LFTs within normal limits. Continue Protonix. Maalox/ simethicone 1. Started Carafate. MiraLAX 1. Continue Trixie-Colace. Still no BM yet, will give MOM x1 today. Recommended outpatient GI follow-up for repeat EGD/colonoscopy however Eliquis would need to be held. Atypical chest pain: Symptoms sound related to GI and patient denies cardiac history. Doubt ACS. Patient also on chronic anticoagulation with Eliquis, however EKG showed nonspecific T-wave changes and ischemia cannot be excluded. Troponin negative 4. Aspirin added. Continue statin. Plan for nuclear stress testing today. Transient left-sided neuro symptoms: Symptoms are vague. Appears neurologically intact on exam. Checked brain MRI which showed old infarcts with no acute infarct or hemorrhage. Aspirin added. Continue Eliquis and statin. Hyperlipidemia: Lipid panel shows elevated LDL at 134. Change lovastatin to atorvastatin. Accelerated Hypertension: Not well controlled. Increased home lisinopril. Clonidine as needed. DVT Prophylaxis: on Eliquis Discharge Planning Discharge pending nuclear stress test and if patient has a BM and tolerating oral intake. Possible discharge later today or tomorrow. 1410hrs: Patient's nuclear stress test was unremarkable. Still no BM. Will give dulcolax in addition to MOM. BP elevated, will give clonidine and increase patient's lisinopril to 20mg daily. Patient can go home later today if constipation relieved. Discharge patient to home Condition on discharge: Improved Heart Healthy Diet as tolerated [place] activity Rx written: ecotrin 81mg daily, lisinopril 20mg daily, Carafate 1gm po tidac, Trixie-Colace 2 tabs po bid, MOM prn, Follow-up with primary care physician and gastroenterology Problem Qualifiers (1) Chest pain: Qualified Code: R07.2 - Precordial pain Charlotte Bennett PA-C Feb 12, 2017 11:24 am
[2017-02-12] MEDS ORDERED: MAGNESIUM HYDROXIDE SUSP 30 ML CUP PO ONE (11:30)
[2017-02-12] MEDS ORDERED: REGADENOSON INJ 0.4 MG/5 ML SYR ONE (11:44)
[2017-02-12 12:53] LABS: HEMOGLOBIN A1b 1.5 %; HEMOGLOBIN Ao 86.5 %; HEMOGLOBIN LA1C 1.7 %; HEMOGLOBIN P3 3.4 %
--- NOTE | 2017-02-12 13:08 | RADRPT ---
EXAM DATE/TIME: 02/12/2017 11:17 [facility] COMPARISON: No previous studies available for comparison. INDICATIONS : Midchest pain for 1 day. Angina. DOSE: 25.7 mCi Tc99m Myoview at stress. 8.1 mCi Tc99m Myoview at rest. 0.4 mg Lexiscan STRESS SYMPTOMS: Chest pressure and short of breath. EJECTION FRACTION: 50% MEDICAL HISTORY : Hypercholesterolemia. Hypertension. Smoking history. SURGICAL HISTORY : Hysterectomy. ENCOUNTER: Initial ACUITY: 1 day PAIN SCALE: 2/10 LOCATION: Midsternal chest TECHNIQUE: The patient underwent pharmacologic stress with infusion of prescribed dose. Continuous ECG tracing was monitored during stress. Gated SPECT imaging was performed after stress and conventional SPECT i maging was performed at rest. The examination was performed on a SPECT/CT scanner, both attenuation and non-corrected datasets were reviewed. FINDINGS: DISTRIBUTION: The maximum perfused segment at stress is in the anterolateral wall. PERFUSION STUDY: The pattern of perfusion at stress is within normal limits. GATED STUDY: There is intact wall motion and thickening without hypokinetic or dyskinetic segments. CONCLUSION: Unremarkable study. RISK CATEGORY: Low (<1% Annual Mortality Rate) Baldev Davidson MD on February 12, 2017 at 13:06 Board Certified Radiologist. This report was verified electronically.
[2017-02-12] MEDS ORDERED: ASPI-99 PO (14:15)
[2017-02-12] MEDS ORDERED: CARA1TAB6 PO (14:15)
[2017-02-12] MEDS ORDERED: LISI10TA3 PO (14:15)
[2017-02-12] MEDS ORDERED: MILKSUS PO (14:15)
[2017-02-12] MEDS ORDERED: PERI8.6T PO (14:15)
--- NOTE | 2017-02-12 14:16 | HHI.DCPOC ---
Discharge Care Plan Diagnosis: (1) Gastritis (2) Constipation (3) Abdominal pain (4) Nausea and vomiting (5) HTN (hypertension) (6) Chest pain Your Health Problems Are: Irregular Bowel Function Goals to Promote Your Health * To prevent worsening of your condition and complications * To maintain your health at the optimal level Directions to Meet Your Goals Take your medications as prescribed Follow your dietary instruction Follow activity as directed Keep your appointments as scheduled Take your immunizations and boosters as scheduled If your symptoms worsen call your PCP, if no PCP go to Urgent Care Center or Emergency Room Smoking is Dangerous to Your Health. Avoid second hand smoke Call the 24-hour hour crisis hotline for domestic abuse at Charlotte Bennett PA-C Feb 12, 2017 14:16
[2017-02-12] MEDS ORDERED: LISI-515 PO (14:20)
[2017-02-12] MEDS ORDERED: BISACODYL 10 MG SUPP RECTAL ONE (14:30)
[2017-02-12] MEDS: ATORVASTATIN 40 MG TAB PO SCH (20:56)
[2017-02-13 04:22] VITALS: BP 156/64; PULSE 63; RESP 18; TEMP 97.9; O2SAT 100
[2017-02-13] MEDS: ACETAMINOPHEN/HYDROcodone 325 MG/7.5 MG TAB PO PRN (04:25)
[2017-02-13 07:16] VITALS: BP 146/78; PULSE 73; RESP 17; TEMP 98.1; O2SAT 99
[2017-02-13 08:00] VITALS: PULSE 73
[2017-02-13] MEDS: ONDANSETRON HCL 4 MG/2 ML VIAL IVP PRN (08:26)
[2017-02-13] MEDS: PANTOPRAZOLE SOD 40 MG DELAYED RELEASE TAB PO SCH (08:27)
[2017-02-13] MEDS: DOCUSATE SODIUM 50 MG/SENNA 8.6 MG TAB PO SCH (08:27)
[2017-02-13] MEDS: SUCRALFATE 1 GM TAB PO SCH ×2 (08:27→13:20)
[2017-02-13] MEDS: SODIUM CHLORIDE 0.9% FLUSH 10 ML FLUSH IV FLUSH SCH (08:27)
[2017-02-13] MEDS: APIXABAN 5 MG TABLET PO SCH (08:27)
[2017-02-13] MEDS: ASPIRIN EC 81 MG TABEC PO SCH (08:27)
[2017-02-13] MEDS ORDERED: LISINOPRIL 20 MG TAB PO SCH (09:00)
[2017-02-13 11:30] VITALS: PULSE 76
[2017-02-13 11:50] VITALS: BP 117/64; PULSE 72; RESP 15; TEMP 98.8; O2SAT 99
--- NOTE | 2017-02-13 11:54 | HHI.DS ---
Discharge Summary Admission Date Feb 11, 2017 at 12:02 am Discharge Date: Feb 13, 2017 Admitting Diagnosis chest pain, left arm/leg numbness (1) Gastritis ICD Code: K29.70 Diagnosis: Principal (2) Abdominal pain ICD Code: R10.9 Diagnosis: Principal (3) Nausea and vomiting ICD Code: R11.2 Diagnosis: Principal (4) Constipation ICD Code: K59.00 Diagnosis: Secondary (5) Chest pain ICD Code: R07.9 Diagnosis: Secondary (6) TIA (transient ischemic attack) ICD Code: G45.9 Diagnosis: Secondary (7) HTN (hypertension) ICD Code: I10 Diagnosis: Secondary (8) Chronic anticoagulation ICD Code: Z79.01 Diagnosis: Secondary Procedures None. Brief History - From Admission 71-year-old female with a PMH of Anxiety, Depression, HTN, Hyperlipidemia and h/ o CVA on Eliquis who presented to the ER w/ complaints of chest pain in addition to left arm and left leg numbness/tingling starting earlier today. Denies fever, chills, cough or sick contacts. No motor weakness reported. States previous Stress Test approx 1yr ago normal, results not available. On arrival, BP 197/91, HR 69, O2 sat 99% on RA, Afebrile. CBC essentially unremarkable. Chemistry unremarkable. Troponin negative. INR 1.0. UA negative. CXR with no acute findings. CT Abd/Pelvis negative. CT Head with no acute findings, old right occipital lobe infarct. CBC/BMP: 02/11/17 0930 02/11/17 0930 Significant Findings Laboratory Tests Test 02/10/17 02/11/17 02/11/17 02/11/17 20:23 08:50 09:30 15:35 Red Blood Count 3.81 MIL/MM3 3.86 MIL/MM3 (4.00-5.30) (4.00-5.30) Mean Platelet Volume 6.8 FL 6.5 FL (7.0-11.0) (7.0-11.0) Lymphocytes (%) (Auto) 56.8 % 51.9 % (9.0-44.0) (9.0-44.0) Monocytes (%) (Auto) 11.7 % 9.7 % (0.0-8.0) (0.0-8.0) Neutrophils # (Auto) 1.3 TH/MM3 1.7 TH/MM3 (1.8-7.7) (1.8-7.7) Urine Occult Blood TRACE (NEG) Troponin I LESS THAN 0.02 LESS THAN 0.02 LESS THAN 0.02 NG/ML NG/ML NG/ML (0.02-0.05) (0.02-0.05) (0.02-0.05) Cholesterol Level 209 MG/DL (120-200) LDL Cholesterol 134 MG/DL (0-99) Test 02/12/17 02/12/17 03:43 09:05 Troponin I LESS THAN 0.02 LESS THAN 0.02 NG/ML NG/ML (0.02-0.05) (0.02-0.05) Imaging Last Impressions Myocardial Perfusion Scan Nuc Med 02/12/17 0000 Signed Impressions: Service Date/Time: Sunday, February 12, 2017 11:17 - CONCLUSION: Unremarkable study. RISK CATEGORY: Low (<1%% Annual Mortality Rate) Baldev Davidson MD Brain MRI 02/11/17 Signed Impressions: Service Date/Time: Saturday, February 11, 2017 10:52 - CONCLUSION: 1. No evidence of acute infarct or hemorrhage. 2. Right occipital encephalomalacia consistent with old infarct. 3. No evidence of focal mass or edema. Francisco Ackerman MD Chest X-Ray 02/10/172014 Signed Impressions: Service Date/Time: Friday, February 10, 2017 20:30 - CONCLUSION: No evidence of acute cardiopulmonary disease. Carlton Melendrez MD Head CT 02/10/17 Signed Impressions: Service Date/Time: Friday, February 10, 2017 22:06 - CONCLUSION: No acute intracranial abnormality. Old right occipital lobe infarct. Carlton Melendrez MD Abdomen/Pelvis CT 02/10/17 Signed Impressions: Service Date/Time: Friday, February 10, 2017 22:10 - CONCLUSION: 1. No acute findings to explain the patient's diffuse abdominal pain. Brandon Senior MD PE at Discharge GENERAL: Well-nourished, well-developed elderly female patient in NAD. SKIN: Warm and dry. No rash. HEENT: Normocephalic. Atraumatic.Pupils equal and round. Mucous membranes pink and moist. NECK: Supple. Trachea midline. CARDIOVASCULAR: Regular rate and rhythm. S1, S2 noted. No murmur appreciated. RESPIRATORY: No accessory muscle use. Clear to auscultation. Breath sounds equal bilaterally. GASTROINTESTINAL: Abdomen soft, nondistended, mild epigastric TTP. Normoactive bowel sounds x4. MUSCULOSKELETAL: No obvious deformities. Extremities without clubbing, cyanosis , or edema. NEUROLOGICAL: Awake and alert. No obvious cranial nerve deficits. Motor grossly within normal limits. Normal speech. PSYCHIATRIC: Appropriate mood and affect; insight and judgment normal. Pt update on day of discharge Follow up for abdominal pain/cramping, constipation, atypical chest pains. The patient reports feeling much better today. She had 2 large BMs which relieved her constipation. Her chest pains resolved and she only has minimal epigastric discomfort. Denies fevers/chills. She is tolerating oral intake. Denies any other medical complaints. She is going to make a follow up appt with her PCP at [facility]. Hospital Course 71-year-old female with past medical history of HTN, CVA, HLD, GERD who presented for abdominal cramping and chest pain Abdominal pain: suspect secondary to chronic gastritis/heartburn in combination with constipation. Abdominal exam is benign. Abdominal CT showed no acute process. Hemoglobin is stable. LFTs within normal limits. Given Protonix and Carafate. Constipation treated with Maalox/simethicone 1, MiraLAX 1, Trixie- Colace; however still no BM therefore given MOM x1 then Lactulose x1 and patient finally had 2 large BMs. Strongly recommended outpatient GI follow-up for repeat EGD/colonoscopy however Eliquis would need to be held prior to procedure. Patient's epigastric pain improved and she was tolerating oral intake at discharge. Atypical chest pain: Symptoms likely related to GI and patient denies cardiac history. Doubt ACS. Patient also on chronic anticoagulation with Eliquis. However EKG showed nonspecific T-wave changes and ischemia cannot be excluded. Troponin negative 4. Aspirin added. Continue statin. Nuclear stress test unremarkable. Chest pains resolved as patient's GI symptoms improved. Transient left-sided neuro symptoms: Symptoms are vague. Appears neurologically intact on exam. Checked brain MRI which showed old infarcts with no acute infarct or hemorrhage. Aspirin added. Continue Eliquis and statin. Hyperlipidemia: Lipid panel shows elevated LDL at 134. Change lovastatin to atorvastatin. Accelerated Hypertension: Not well controlled. Increased home lisinopril. Clonidine as needed. Pt Condition on Discharge: Stable Discharge Disposition: Discharge Home Discharge Time: > 30 minutes Discharge Instructions DIET: Follow Instructions for: Heart Healthy Diet Activities you can perform: Regular-No Restrictions Follow up Referrals: Gastroenterology - 1 Week @ [facility] PCP Follow-up - 2-3 Days New Medications: Lisinopril (Lisinopril) 20 Mg Tab 20 MG PO DAILY #30 Ref 0 TAB Magnesium Hydroxide Liq (Milk of Magnesia Liq) 400 Mg/5 Ml Susp 30 ML PO Q12HR PRN CONSTIPATION #1 Ref 0 BOTTLE Sennosides-Docusate Sodium (Trixie-Colace) 8.6-50 Mg Tab 2 TAB PO BID Constipation #60 Ref [address] (Adult Aspirin EC Low Strength) 81 Mg Tabec 81 MG PO DAILY Prevent Blood Clot #30 TAB Sucralfate (Carafate) 1 Gm Tab 1 GM PO TIDAC gastritis #30 TAB Continued Medications: Apixaban (Eliquis) 5 Mg Tab 5 MG PO BID Blood Clot Prevention #60 Ref 0 TAB Furosemide (Furosemide) 20 Mg Tab 20 MG PO DAILY #30 Ref 0 TAB Hydrocodone-Acetaminophen (Hydrocodone-Acetaminophen) 7.5-325 mg Tab 1 TAB PO Q8HR PRN PAIN #30 Ref 0 TAB Lovastatin (Lovastatin) 40 Mg Tab 80 MG PO HS Cholesterol Management #60 Ref 0 TAB Omeprazole (Omeprazole) 40 Mg Cap 40 MG PO DAILY #30 Ref 0 CAP Discontinued Medications: Lisinopril (Lisinopril) 5 Mg Tab 5 MG PO DAILY Blood Pressure Management #30 Ref 0 TAB Charlotte Bennett PA-C Feb 13, 2017 11:54 am
== END 2017-02-13 15:34 | disposition home or self-care (01) ==
LOC: NEPE 19:46 → NEDA 02-11 00:02 → NEPHCDU 02-11 01:53
PROVIDERS: ADMIT Hospitalist; ATTEND Hospitalist
DX: R07.2 Precordial pain (principal); G45.9 Transient cerebral ischemic attack, unspecified; R53.1 Weakness; I70.0 Atherosclerosis of aorta; R41.82 Altered mental status, unspecified; R94.31 Abnormal electrocardiogram [ECG] [EKG]; R68.83 Chills (without fever); R06.02 Shortness of breath; K29.70 Gastritis, unspecified, without bleeding; K59.00 Constipation, unspecified; R20.0 Anesthesia of skin; I10 Essential (primary) hypertension; I20.9 Angina pectoris, unspecified; E78.5 Hyperlipidemia, unspecified; E78.00 Pure hypercholesterolemia, unspecified; K21.9 Gastro-esophageal reflux disease without esophagitis; I69.392 Facial weakness following cerebral infarction; M43.06 Spondylolysis, lumbar region; F32.9 Major depressive disorder, single episode, unspecified; F41.9 Anxiety disorder, unspecified; Z79.01 Long term (current) use of anticoagulants; Z87.891 Personal history of nicotine dependence
CPT/HCPCS: 70450; 70551; 71010; 74177; 76937; 78452; 80053; 80061; 81001; 82550; 82552; 83036; 83690; 83735; 84484; 85025; 85610; 85730; 93005; 93017; 96374; 96375; 99285; A9502; C9113; G0378; J2270; J2405; J2785; J7030; Q9967